=== PATIENT | female | born 1985 | race Hispanic/Latino ===

== ENCOUNTER 2017-04-23 11:43 | Emergency (ER) | payer SELFPAY ==
[2017-04-23 12:20] LABS: Bilirubin Negative (Negative); Blood, Urine Negative (Negative); Clarity Clear (Clear); Glucose, Urine (Dipstick) Negative (Negative); Leukocyte Negative (Negative); Nitrite Negative (Negative); Protein, Urine (Dipstick) Negative (Neg-Trace); Urobilinogen 0.2 mg/dL (0.2-1.0)
== END 2017-04-23 12:52 | disposition home or self-care (01) ==
LOC: SCSER 11:43
DX: E66.01 Morbid (severe) obesity due to excess calories (principal); M25.50 Pain in unspecified joint; I10 Essential (primary) hypertension; Z87.891 Personal history of nicotine dependence; Z79.899 Other long term (current) drug therapy
CPT/HCPCS: 81003; 99283

== ENCOUNTER 2017-12-30 18:18 | Emergency (ER) | payer SELFPAY ==
[~2017-12-30 18:18] MED LIST: ISOVUE-370 76%-LOCM 1 ML ONE
[2017-12-30 18:59] LABS: #Eosinphils 0.2 thou/uL (0.0-0.7); #Lymphocytes 1.4 thou/uL (1.20-3.40); #Monocytes 0.7 thou/uL (0.11-0.59); #Neutrophils 8.2 thou/uL (1.40-6.50); %Basophils 0.2 % (0.0-1.0); %Eosinophils 1.7 % (0.0-10.0); %Lymphocytes 13.7 % (21.0-51.0); %Monocytes 6.2 % (0.0-10.0); %Neutrophils 78.2 % (42.0-75.0); Hemoglobin 12.1 g/dL (12.0-16.0); Mean Corpuscular HGB CONC 30.3 g/dL (32.0-36.0); Mean Corpuscular Hemoglobin 24.7 pg (27.0-31.0); Mean Corpuscular Volume 81.7 fL (78.0-98.0); Mean Platelet Volume 8.3 fL (7.4-10.4); Platelet Count 291 thou/uL (130-400); RBC Distribution Width 19.6 % (11.5-14.5); Red Blood Cell (RBC) Count 4.89 mill/uL (4.20-5.40); White Blood Cell (WBC) Count 10.5 thou/uL (4.8-10.8)
[2017-12-30 19:15] LABS: BHCG - Serum Negative (NEGATIVE); Pregs Control Background? CLEAR/WHITE (CLR/WHITE); Pregs Control Bar Appear? YES (CONTROL BAR)
--- NOTE | 2017-12-30 19:21 | RAD ---
AP VIEW CHEST: 12/30/17 HISTORY: Dyspnea. 32-year-old female with history of cough for eight months. AP view chest is obtained. The lungs are well aerated. No evidence of acute intrathoracic abnormality seen. No evidence of effus ions, pneumonia or pneumothorax seen. IMPRESSION: Unremarkable AP view chest. POS: [facility]
[2017-12-30 19:22] LABS: ALT (SGPT) 17 U/L (8-55); AST (SGOT) 18 U/L (5-34); Albumin 3.6 g/dL (3.5-5.0); Alkaline Phosphatase 89 U/L (40-150); Anion Gap 12 mmol/L (10-20); BUN (Urea Nitrogen) 12 mg/dL (7.0-18.7); Bilirubin, Total 0.3 mg/dL (0.2-1.2); Calc. Creatinine Clearance 0 mL/min (70-130); Calcium 8.8 mg/dL (7.8-10.44); Carbon Dioxide 27 mmol/L (22-29); Chloride 99 mmol/L (98-107); Estimated GFR-MDRD Greater than 90; Globulin 3.6 g/dL (2.4-3.5); Glucose 98 mg/dL (70-105); Potassium 4.3 mmol/L (3.5-5.1); Protein, Total 7.2 g/dL (6.0-8.3); Sodium 134 mmol/L (136-145)
--- NOTE | 2017-12-30 21:13 | CT ---
CONTRAST ENHANCED CTA IMAGES OF CHEST 12/30/17 HISTORY: 32-year-old complaining of cough for eight months, shortness of breath. Contrast enhanced CTA of the chest is performed. 2D and 3D reconstructed images performed on an [employer] 3D workstation. No evidence of pleural or pericardial effusion seen. No evidence of significant mediastinal mass is seen. Mild superior mediastinal lymphadenopathy is pre sent. No evidence of hilar or axillary lymphadenopathy seen. No evidence of filling defect seen in the pulmonary arteries to suggest pulmonary emboli. IMPRESSION: No evidence of pulmonary emboli. POS: [facility]
== END 2017-12-30 21:18 | disposition home or self-care (01) ==
LOC: ERS 18:18
DX: R06.00 Dyspnea, unspecified (principal); J45.909 Unspecified asthma, uncomplicated; I10 Essential (primary) hypertension; E66.9 Obesity, unspecified; E11.9 Type 2 diabetes mellitus without complications; F17.210 Nicotine dependence, cigarettes, uncomplicated; F32.9 Major depressive disorder, single episode, unspecified; Z79.899 Other long term (current) drug therapy
CPT/HCPCS: 36415; 71045; 71275; 80053; 83880; 84703; 85025; 87040; 96360

== ENCOUNTER 2019-01-17 23:33 | Inpatient (IN) | payer SELFPAY ==
[2019-01-18] MEDS ORDERED: Ketorolac Tromethamine 30 MG/ML VIAL ONE (00:43)
[2019-01-18] MEDS ORDERED: Acetaminophen 1,000 MG in Premix Bag 1 BAG IVPB SCH (00:45)
[2019-01-18 00:51] LABS: Bacteria/HPF None Seen HPF (None Seen); Bilirubin Negative (Negative); Blood, Urine 1+ (Negative); Clarity Clear (Clear); Glucose, Urine (Dipstick) 50 mg/dL (Negative); Leukocyte Negative Leu/uL (Negative); Nitrite Negative (Negative); Pregnancy Test - Urine (BHCG) Negative (Negative); Pregu Control Bar Appear? YES (CONTROL BAR); Protein, Urine (Dipstick) 10 mg/dL (Neg-Trace); Specific Gravity 1.029 (1.002-1.036); Squamous Epithelial 0-3 HPF (0-3); Urobilinogen Normal mg/dL (Less than 2); WBC/HPF 0-3 HPF (0-3)
[2019-01-18 00:52] LABS: Pregu Control Background? CLEAR/WHITE (CLR/WHITE)
[2019-01-18 01:07] LABS: #Eosinphils 0.3 thou/uL (0.0-0.7); #Lymphocytes 1.9 thou/uL (1.20-3.40); #Monocytes 0.4 thou/uL (0.11-0.59); #Neutrophils 13.6 thou/uL (1.40-6.50); %Basophils 0.1 % (0.0-1.0); %Eosinophils 1.6 % (0.0-10.0); %Lymphocytes 11.6 % (21.0-51.0); %Monocytes 2.7 % (0.0-10.0); Hemoglobin 12.6 g/dL (12.0-16.0); Mean Corpuscular HGB CONC 31.6 g/dL (32.0-36.0); Mean Corpuscular Hemoglobin 26.1 pg (27.0-31.0); Mean Corpuscular Volume 82.7 fL (78.0-98.0); Mean Platelet Volume 7.6 fL (7.4-10.4); Platelet Count 290 thou/uL (130-400); RBC Distribution Width 16.3 % (11.5-14.5); Red Blood Cell (RBC) Count 4.83 mill/uL (4.20-5.40); White Blood Cell (WBC) Count 16.2 thou/uL (4.8-10.8)
[2019-01-18 01:37] LABS: ALT (SGPT) 12 U/L (8-55); AST (SGOT) 14 U/L (5-34); Albumin 3.7 g/dL (3.5-5.0); Alkaline Phosphatase 79 U/L (40-110); Anion Gap 13 mmol/L (10-20); BUN (Urea Nitrogen) 18 mg/dL (7.0-18.7); Bilirubin, Total Less than 0.2 mg/dL (0.2-1.2); Calc. Creatinine Clearance 0 mL/min (70-130); Calcium 9.2 mg/dL (7.8-10.44); Carbon Dioxide 27 mmol/L (22-29); Chloride 102 mmol/L (98-107); Estimated GFR-MDRD 79; Globulin 3.5 g/dL (2.4-3.5); Glucose 125 mg/dL (70-105); Lipase 21 U/L (8-78); Potassium 4.4 mmol/L (3.5-5.1); Protein, Total 7.2 g/dL (6.0-8.3); Sodium 138 mmol/L (136-145)
[2019-01-18 03:40] LABS: Lactic Acid 1.7 mmol/L (0.5-2.2)
[2019-01-18] MEDS ORDERED: Sodium Chloride 0.9% 1,000 ML IV SCH (04:30)
[2019-01-18 04:43] VITALS: BMI 64.8
[2019-01-18] MEDS ORDERED: Ketorolac Tromethamine 30 MG/ML VIAL IVP SCH (07:30)
--- NOTE | 2019-01-18 08:07 | CT ---
PRELIMINARY REPORT/[facility]/EMERGENCY AFTER HOURS PROCEDURE: Addendum created by Fritz Cameron MD on 01/18/2019 1:42 AM Central Time ([place] & [place]) Small fat-cont aining umbilical hernia. Probable umbilical cellulitis, related to generalized lower abdominal wall c ellulitis. Initial Report created on 01/18/2019 1:41 AM Central Time ([place] & [place]) PROCEDURE INFORMATION: Exam: CT Abdomen And Pelvis With Contrast Exam date and time: 01/18/2019 1:22 AM Clinical history: 33 years old, female; Patient HX: Er 23. F33 here for generalized abdominal pain an d 1 episode of vomiting. PT was dx with a hernia at another facility. No fevers. No dysuria. Patient had a normal bm today. TECHNIQUE: Imaging protocol: Computed tomography of the abdomen and pelvis with intravenous contrast. COMPARISON: No relevant prior studies available. FINDINGS: Liver: Normal. No mass. Gallbladder and bile ducts: Normal. No calcified stones. No ductal dilation. Pancreas: Normal. No ductal dilation. Spleen: Normal. No splenomegaly. Adrenals: Normal. No mass. Kidneys and ureters: Round hypodense lesion of the right kidney does not meet strict CT criteria for a simple cyst and is indeterminate, potentially a hyperdense cyst. It measures 1.5 cm and 33 Hounsfie ld units. Stomach and bowel: Mild gaseous distention of the nondependent portions of the bowel may contribute t o patient discomfort but is not pathologic. No bowel wall thickening or intestinal obstruction. Appendix: Normal appendix. Intraperitoneal space: Trace ascites. Vasculature: Unremarkable. No abdominal aortic aneurysm. Lymph nodes: Bilateral inguinal lymphadenopathy measuring up to 1.5 cm in short axis. Bladder: Unremarkable as visualized. Reproductive: Endometrial stripe is diffusely thickened. Consider ultrasound. Bones/joints: Unremarkable. No acute fracture. Soft tissues: Low anterior abdominal wall cellulitis. IMPRESSION: 1. Low anterior abdominal wall cellulitis. 2. Bilateral inguinal lymphadenopathy measuring up to 1.5 cm in short axis. 3. Endometrial stripe is diffusely thickened. Consider ultrasound. 4. Trace ascites. Thank you for allowing us to participate in the care of your patient. Dictated and Authenticated by: Fritz Cameron MD 01/18/2019 1:41 AM Central Time ([place] & [place]) FINAL REPORT CT ABDOMEN AND PELVIS WITH IV CONTRAST: I agree with the preliminary report given by Dr. Fritz Cameron of [facility]. POS: [facility]
[2019-01-18] MEDS ORDERED: Ondansetron PF 4 MG/2 ML Vial IVP PRN (10:51)
[2019-01-18] MEDS ORDERED: Ondansetron ODT 4 MG TAB PO PRN (10:51)
[2019-01-18] MEDS ORDERED: Acetaminophen 650 MG Suppository PR PRN (10:51)
[2019-01-18] MEDS ORDERED: Senokot S 8.6-50 MG TAB PO PRN (10:51)
[2019-01-18] MEDS ORDERED: Dextrose 50% Abboject 50 ML SYRINGE SLOW IVP PRN (10:57)
[2019-01-18] MEDS ORDERED: HumaLOG 300 UNITS/3 ML VIAL SC PRN ×2 (10:57)
[2019-01-18] MEDS ORDERED: Dextrose 5% in Water 1,000 ML IV PRN (10:57)
--- NOTE | 2019-01-18 11:01 | PDOC.HHP ---
Hospitalist HPI - History of Present Illness Abdominal pain History of Present Illness: Ms. Greenfield is a pleasant 33 year old woman presenting with abdominal cramping. Reports feeling a "knot" on her abdomen which she associated with a hernia. She states the cramping became worse prompting her to come in.This morning when I walked in she stated she felt much better and thinks the discomfort is associated with her menses due to vaginal bleeding she had yesterday. She states she often has heavy bleeding on the first day and then has occasional spotting after that. This has been normal for her for many years. She was seen with similar symptoms 1 week ago at the [facility] in the ED at which time she had been experiencing N/V. It was at that time that she was diagnosed with an abdominal hernia. She denies any complaints at present. I did review with her results from imaging done in the ED. ED Course: In the ED she received IV fluids, Ofirmev and Toradol. She had a CT Abdomen/Pelvis done showing low anterior abdominal wall cellulitis , bilateral inguinal lymphadenopathy measuring up to 1.5cm. The endometrial stripe appeared diffusely thickened. She was also noted to have trace ascites. She was started on IV abx with Vancomycin. Hospitalist ROS - Review of Systems Constitutional: reports: malaise. denies: fever, chills, sweats, weakness, other Eyes: denies: pain, vision change, conjunctivae inflammation, eyelid inflammation, redness, other ENT: denies: ear pain, ear discharge, nose pain, nose discharge, nose congestion , mouth pain, mouth swelling, throat pain, throat swelling, other Respiratory: reports: cough (chronic, unchanged and unproductive), shortness of breath (at baseline, uses inhalers and nebs at home.). denies: dry, hemoptysis , SOB with excertion, pleuritic pain, sputum, wheezing, other Cardiovascular: denies: chest pain, palpitations, orthopnea, paroxysmal noc. dyspnea, edema, light headedness, other Gastrointestinal: reports: abdominal pain (Has improved, described as low abdominal cramping as well as supraumbilical discomfort that mainly is brought on with palpation.). denies: nausea, vomiting, diarrhea, constipation, melena, hematochezia, other Genitourinary: denies: dysuria, frequency, incontinence, hematuria, retention, other Musculoskeletal: denies: neck pain, shoulder pain, arm pain, back pain, hand pain, leg pain, foot pain, other Skin: denies: rash, lesions, rambo, bruising, other Neurological: denies: weakness, numbness, incoordination, change in speech, confusion, seizures, other - Medication Medications: Active Medications Generic Name Dose Route Start Last Admin Trade Name Freq PRN Reason Stop Dose Admin Sodium Chloride 1,000 mls @ 125 mls/hr 01/18/19 04:30 01/18/19 05:07 Normal Saline 0.9% IV 01/18/19 15:00 1,000 mls .Q8H HUBERT Administration Hospitalist History - Past Medical History Source: patient Cardiac: reports: HTN, Other (Morbid obesity) Pulmonary: reports: asthma, COPD [employer]: reports: no pertinent history Gastrointestinal: reports: GERD Hepatobiliary: reports: no pertinent history Psych: reports: Depression Rheumatologic: reports: no pertinent history Infectious Disease: reports: no pertinent history ENT: reports: no pertinent history Renal/: reports: no pertinent history Endocrine: reports: Diabetes - Past Surgical History Past Surgical History: reports: Other (Orthopedic surgery (right leg x 3)) - Social History Smoking Status: Current every day smoker (has cut down to 1/2 a pack per day) Alcohol: reports: None Living Situation: With Family Activity level: independent ambulation - Exam General Appearance: NAD General - other findings: Morbidly obese Eye: PERRL, anicteric sclera ENT: normocephalic atraumatic, no oropharyngeal lesions, moist mucosa Neck: supple, symmetric, no JVD, no thyromegaly, no lymphadenopathy Heart: RRR, no murmur, no gallops, no rubs, normal peripheral pulses Respiratory: CTAB, no wheezes, no rales, no ronchi, normal chest expansion Gastrointestinal: soft, non-distended, normal bowel sounds, no guarding, tender to palpation (Discomfort in supraumbilical region with slight firmness, no guarding no warmth) Extremities: no edema Skin: normal turgor, no lesions, no rashes Neurological: cranial nerve grossly intact Musculoskeletal: normal tone, normal strength, no muscle wasting Psychiatric: normal affect, normal behavior, A&O x 3 Hospitalist Results - Labs Result Diagrams: 01/18/19 00:57 01/18/19 00:57 Lab results: WBC 16.2 thou/uL (4.8-10.8) H 01/18/19 00:57 Hgb 12.6 g/dL (12.0-16.0) 01/18/19 00:57 Hct 39.9 % (36.0-47.0) 01/18/19 00:57 MCV 82.7 fL (78.0-98.0) 01/18/19 00:57 Plt Count 290 thou/uL (130-400) 01/18/19 00:57 Neutrophils % 84.0 % (42.0-75.0) H 01/18/19 00:57 Sodium 138 mmol/L (136-145) 01/18/19 00:57 Potassium 4.4 mmol/L (3.5-5.1) 01/18/19 00:57 Chloride 102 mmol/L (98-107) 01/18/19 00:57 Carbon Dioxide 27 mmol/L (22-29) 01/18/19 00:57 BUN 18 mg/dL (7.0-18.7) 01/18/19 00:57 Creatinine 0.83 mg/dL (0.6-1.1) 01/18/19 00:57 Glucose 125 mg/dL (70-105) H 01/18/19 00:57 Lactic Acid 1.7 mmol/L (0.5-2.2) 01/18/19 03:16 Calcium 9.2 mg/dL (7.8-10.44) 01/18/19 00:57 Total Bilirubin Less than 0.2 mg/dL (0.2-1.2) L 01/18/19 00:57 AST 14 U/L (5-34) 01/18/19 00:57 ALT 12 U/L (8-55) 01/18/19 00:57 Alkaline Phosphatase 79 U/L (40-110) 01/18/19 00:57 Serum Total Protein 7.2 g/dL (6.0-8.3) 01/18/19 00:57 Albumin 3.7 g/dL (3.5-5.0) 01/18/19 00:57 Lipase 21 U/L (8-78) 01/18/19 00:57 Urine Ketones Negative mg/dL (Negative) 01/18/19 00:34 Urine Blood 1+ (Negative) A 01/18/19 00:34 Urine Nitrite Negative (Negative) 01/18/19 00:34 Ur Leukocyte Esterase Negative Agapito/uL (Negative) 01/18/19 00:34 Urine RBC 11-20 HPF (0-3) A 01/18/19 00:34 Urine WBC 0-3 HPF (0-3) 01/18/19 00:34 Ur Squamous Epith Cells 0-3 HPF (0-3) 01/18/19 00:34 Urine Bacteria None Seen HPF (None Seen) 01/18/19 00:34 - Radiology Interpretation CT scan - abdomen Status: report reviewed by in Hospitalist H&P A/P - Problem (1) Abdominal wall cellulitis Code(s): L03.311 - CELLULITIS OF ABDOMINAL WALL Status: Acute (2) Abdominal pain Code(s): R10.9 - UNSPECIFIED ABDOMINAL PAIN Status: Acute (3) Hypertension Code(s): I10 - ESSENTIAL (PRIMARY) HYPERTENSION Status: Chronic (4) Diabetes mellitus Code(s): E11.9 - TYPE 2 DIABETES MELLITUS WITHOUT COMPLICATIONS Status: Chronic (5) Morbid obesity Code(s): E66.01 - MORBID (SEVERE) OBESITY DUE TO EXCESS CALORIES Status: Chronic - Plan Plan: Continue IV Abx. Repeat labs, including lactic acid. Resume home medications once verified and entered. No home meds list have been entered however appears to be on multiple medications for HTN and DM. Monitor BP and glucose. ISS initiated. Duo nebs prn. Resume home inhalers once entered/verified. IVF Fluids at 125 cc/hr, will cut down to 65/hr, given history of LE edema ( denies history of CHF). Will add BNP to labs. GI Prophylaxis with Famotidine. DVT Prophlaxis with mechanical SCDs. Walking program consulted. FULL CODE STATUS. Her surrogate decision maker is her mother Marilyn Greenfield.
[2019-01-18] MEDS: Sodium Chloride 0.9% 1,000 ML IV SCH ×2 (12:25→20:19)
[2019-01-18] MEDS ORDERED: ISOVUE-370 76%-LOCM 1 ML ONE (13:39)
[2019-01-18] MEDS: buPROPion HCl 100 MG TAB PO SCH ×2 (15:29→20:22)
[2019-01-18] MEDS: Acetaminophen 325 MG TAB PO PRN ×2 (16:18→20:22)
[2019-01-18] MEDS: Famotidine/PF 20 mg/2ml Vial SLOW IVP SCH (20:23)
[2019-01-18] MEDS ORDERED: FLU VACC QS2019-20(6MOS UP)/PF 60 MCG/0.5 ML SYRINGE IM ONE (21:00)
[2019-01-18] MEDS: Ketorolac Tromethamine 30 MG/ML VIAL IVP PRN (21:57)
[2019-01-19 05:43] LABS: #Eosinphils 0.4 thou/uL (0.0-0.7); #Lymphocytes 1.2 thou/uL (1.20-3.40); #Monocytes 0.4 thou/uL (0.11-0.59); #Neutrophils 8.4 thou/uL (1.40-6.50); %Eosinophils 3.4 % (0.0-10.0); %Lymphocytes 11.7 % (21.0-51.0); %Monocytes 4.1 % (0.0-10.0); %Neutrophils 80.8 % (42.0-75.0); Hemoglobin 11.1 g/dL (12.0-16.0); Mean Corpuscular HGB CONC 30.6 g/dL (32.0-36.0); Mean Corpuscular Hemoglobin 25.5 pg (27.0-31.0); Mean Corpuscular Volume 83.3 fL (78.0-98.0); Mean Platelet Volume 7.8 fL (7.4-10.4); Platelet Count 225 thou/uL (130-400); RBC Distribution Width 16.2 % (11.5-14.5); Red Blood Cell (RBC) Count 4.35 mill/uL (4.20-5.40); White Blood Cell (WBC) Count 10.4 thou/uL (4.8-10.8)
[2019-01-19 06:04] LABS: Vancomycin, Trough 25.5 ug/mL
[2019-01-19 06:05] LABS: Anion Gap 10 mmol/L (10-20); BUN (Urea Nitrogen) 10 mg/dL (7.0-18.7); Calc. Creatinine Clearance 291 mL/min (70-130); Calcium 8.3 mg/dL (7.8-10.44); Carbon Dioxide 28 mmol/L (22-29); Chloride 102 mmol/L (98-107); Estimated GFR-MDRD Greater than 90; Glucose 138 mg/dL (70-105); Potassium 3.9 mmol/L (3.5-5.1); Sodium 136 mmol/L (136-145)
[2019-01-19] MEDS: Ketorolac Tromethamine 30 MG/ML VIAL IVP PRN (06:38)
[2019-01-19 07:19] VITALS: TEMP 97.9
[2019-01-19] MEDS ORDERED: Lisinopril 10 MG TAB PO SCH (09:00)
[2019-01-19] MEDS ORDERED: Citalopram 20 MG TAB PO SCH (09:00)
[2019-01-19] MEDS: buPROPion HCl 100 MG TAB PO SCH (09:13)
[2019-01-19] MEDS: Famotidine/PF 20 mg/2ml Vial SLOW IVP SCH (09:13)
[2019-01-19 12:36] VITALS: BP 147/53
--- NOTE | 2019-01-19 21:35 | DIS ---
DATE OF ADMISSION: 01/18/2019 DATE OF DISCHARGE: 01/19/2019 DISCHARGE DIAGNOSES: 1. Abdominal wall cellulitis. 2. Abdominal pain. 3. Hypertension. 4. Diabetes mellitus, type 2. 5. Morbid obesity. HOSPITAL COURSE: The patient is a 33-year-old female, who was admitted to the hospital with abdominal cramping. Apparently, she was seen at the [facility] in the emergency room approximately a week ago with similar presentation. Abdominal cramping was presenting with nausea and vomiting. Apparently, she ran out of her omeprazole several weeks ago and in the emergency room, she received IV fluids and Toradol. She had a CT of the abdomen and pelvis done which showed low anterior abdominal wall cellulitis, bilateral inguinal lymphadenopathy measuring up to 1.5 cm, and endometrial stripe appeared diffusely thickened. The patient was evaluated in the emergency room with lab work which showed white count of 16.2, hemoglobin 12.6, hematocrit 39.9, platelet count was 290. Sodium 138, potassium 4.4, chloride 102, CO2 of 27, BUN 18, creatinine 0.83, and glucose 125. The rest of chemistry was within normal limits. Lipase was 21. Urinalysis showed 1+ blood in urine, 11-20 rbc's. Urine nitrite negative and urine leukocyte esterase negative. The patient was admitted to the hospital, placed on vancomycin. Her lactic acid was repeated and was normal. Her abdominal pain was completely gone the next day, which is today. She is able to eat her meals. She had two breakfast and lunch without any problems. She would like to go home. Her vitals; blood pressure is 153/94, temperature is 97.9, pulse is 71, respirations 16, and O2 saturation is 99% on room air. She is morbidly obese. Her lungs are clear. Heart; S1, S2 normal. Abdomen is very obese. The lower parts of the abdomen in the fold showed some mild erythema and mild rash. The patient was asked to have this area cleaned thoroughly couple of times a day with water and soap and apply triple antibiotic ointment. She is going to take her antibiotic, which is Bactrim Double Strength one tablet twice a day for the next 14 days. Also, she will continue on her trazodone 100 mg at bedtime, bupropion 100 mg 3 times a day, Celexa 40 mg daily, glipizide 10 mg every morning, metformin 1000 mg twice a day, lisinopril 10 mg daily, omeprazole 40 mg daily, so she will have prescription for both Bactrim and omeprazole. She will follow up with her primary care physician in 1 week. She goes to [facility] and she will use p.r.n. Tylenol as needed for the pain. She is discharged home in good condition. Her two blood cultures came back negative and white count is down to normal range this morning. The time spent on this discharge is less than 30 minutes. Job ID: [id number]
--- NOTE | 2019-01-20 04:47 | PQF ---
[employer] Magi Reddy RAMU You MD [id number] CLINICAL DOCUMENTATION CLARIFICATION FORM: POST DISCHARGE Addendum to original discharge summary date: ____ Late entry note date: __ DATE: 01/20/2019 ATTN: Ramu Gutierres Please exercise your independent, professional judgment in responding to the clarification form. Clinical indicators are provided on the bottom of this form for your review Kindly clarify regarding ruled in/ruled out sepsis Please check appropriate box(s) to clarify if the following diagnosis has been ruled in or ruled out: Sepsis [ ] Ruled in diagnosis [ ] Continue to treat [ ] Resolved [ ] Ruled out diagnosis [ x ] Cannot rule out diagnosis [ ] Other diagnosis [ ] Unable to determine For continuity of documentation, please document condition throughout progress notes and discharge summary. Thank You. CLINICAL INDICATORS - SIGNS / SYMPTOMS / LABS Sepsis 2/2 cellulitis - ED report Blood pressure 145/92, pulse 95 and respiratory rate 22 - ED report Repeat labs, including lactic acid - H and P WBC is 16.2 on 01/18 - Laboratory RISK FACTORS Abdominal wall cellulitis - discharge summary Hypertension and diabetes mellitus - discharge summary TREATMENTS IV Vancomycin started on 01/18 - Medications IV fluids started on 01/18 - Medications (This form is maintained as a part of the permanent medical record) 2014 [employer] All Rights Reserved [email or web address] [phone] [email or web address]
== END 2019-01-19 13:39 | disposition home or self-care (01) | DRG 872 ==
LOC: ERS 23:33 → T4-B 01-18 04:10
PROVIDERS: ADMIT Hospitalist; ATTEND Hospitalist
DX: A41.9 Sepsis, unspecified organism (principal); L03.311 Cellulitis of abdominal wall; Z68.44 Body mass index [BMI] 60.0-69.9, adult; R59.0 Localized enlarged lymph nodes; F17.210 Nicotine dependence, cigarettes, uncomplicated; I10 Essential (primary) hypertension; E11.9 Type 2 diabetes mellitus without complications; E66.01 Morbid (severe) obesity due to excess calories; J44.9 Chronic obstructive pulmonary disease, unspecified; F32.9 Major depressive disorder, single episode, unspecified
CPT/HCPCS: 36415; 36416; 51701; 74177; 80048; 80053; 80202; 81003; 81015; 81025; 83605; 83690; 83880; 85025; 87040; 96365; 96375; A4353; J0131; J1885; J3370; J7050; Q9966; S0028

== ENCOUNTER 2020-08-17 17:16 | Outpatient (CLI) | payer SELFPAY ==
[2020-08-17 18:30] LABS: BHCG - Serum Negative (NEGATIVE); Pregs Control Background? CLEAR/WHITE (CLR/WHITE); Pregs Control Bar Appear? YES (CONTROL BAR)
[2020-08-17 18:34] LABS: Anion Gap 17 mmol/L (10-20); BUN (Urea Nitrogen) 11 mg/dL (7.0-18.7); Calc. Creatinine Clearance 0 mL/min (70-130); Calcium 8.6 mg/dL (7.8-10.44); Carbon Dioxide 25 mmol/L (22-29); Chloride 99 mmol/L (98-107); Glucose 167 mg/dL (70-105); Potassium 3.9 mmol/L (3.5-5.1); Sodium 137 mmol/L (136-145)
[2020-08-18 01:54] LABS: SARS-CoV-2 PCR by NAA Not Detected (NotDetected)
== END 2020-08-17 17:17 | disposition home or self-care (01) ==
LOC: LABBT 17:16
PROVIDERS: ATTEND Surgery Surgery of the Hand
DX: Z01.812 Encounter for preprocedural laboratory examination (principal); S62.606A Fracture of unspecified phalanx of right little finger, initial encounter for closed fracture; S66.114A Strain of flexor muscle, fascia and tendon of right ring finger at wrist and hand level, initial encounter; Z20.822 Contact with and (suspected) exposure to COVID-19
CPT/HCPCS: 80048; 84703; 87635; U0003; U0005

== ENCOUNTER 2020-08-24 16:57 | Outpatient (CLI) | payer SELFPAY ==
[2020-08-24 17:54] LABS: Anion Gap 15 mmol/L (10-20); BUN (Urea Nitrogen) 13 mg/dL (7.0-18.7); Calc. Creatinine Clearance 0 mL/min (70-130); Calcium 9.2 mg/dL (7.8-10.44); Carbon Dioxide 27 mmol/L (22-29); Chloride 97 mmol/L (98-107); Glucose 239 mg/dL (70-105); Potassium 4.4 mmol/L (3.5-5.1); Sodium 135 mmol/L (136-145)
[2020-08-24 18:07] LABS: BHCG - Serum Negative (NEGATIVE); Pregs Control Background? CLEAR/WHITE (CLR/WHITE); Pregs Control Bar Appear? YES (CONTROL BAR)
[2020-08-25 01:47] LABS: SARS-CoV-2 PCR by NAA Not Detected (NotDetected)
== END 2020-08-24 16:58 | disposition home or self-care (01) ==
LOC: LABBT 16:57
PROVIDERS: ATTEND Surgery Surgery of the Hand
DX: Z01.812 Encounter for preprocedural laboratory examination (principal); S62.606A Fracture of unspecified phalanx of right little finger, initial encounter for closed fracture; Z20.822 Contact with and (suspected) exposure to COVID-19
CPT/HCPCS: 80048; 84703; 87635; U0003; U0005

== ENCOUNTER 2020-08-28 10:09 | Day surgery (SDC) | payer SELFPAY ==
[2020-08-18 12:06] VITALS: BMI 54.0
[2020-08-28] MEDS ORDERED: Lidocaine 1% (PF) 30 ML VIAL ONE (11:48)
[2020-08-28] MEDS ORDERED: Bupivacaine 0.25% HCL 30 ML VIAL ONE (11:48)
[2020-08-28] MEDS ORDERED: Fentanyl 100 MCG/2 ML VIAL ONE (12:01)
[2020-08-28] MEDS ORDERED: Midazolam HCl 2 mg/2 ml Vial ONE (12:32)
[2020-08-28] MEDS ORDERED: Ondansetron PF 4 MG/2 ML Vial ONE (12:51)
[2020-08-28] MEDS ORDERED: Rocuronium Bromide 10 MG/ML (10ML VIAL) ONE (12:51)
[2020-08-28] MEDS ORDERED: Lidocaine 1% PF 5 ML VIAL ONE (12:51)
[2020-08-28] MEDS ORDERED: Ketorolac Tromethamine 30 MG/ML VIAL ONE (12:51)
[2020-08-28] MEDS ORDERED: Metoclopramide HCl 10 MG/2 ML VIAL ONE (12:51)
[2020-08-28] MEDS ORDERED: diphenhydrAMINE 50 MG/ML VIAL ONE (12:51)
[2020-08-28] MEDS ORDERED: PROPOFOL 200 MG/20 ML VIAL ONE (12:51)
[2020-08-28] MEDS ORDERED: SUGAMMADEX SODIUM 200 MG/2 ML VIAL ONE (14:03)
== END 2020-08-28 16:30 | disposition home or self-care (01) ==
LOC: SDC 10:09
PROVIDERS: ATTEND Surgery Surgery of the Hand
PROC: 0PST04Z Reposition Right Finger Phalanx with Internal Fixation Device, Open Approach (ICD-10-PCS; principal; 2020-08-28)
DX: S62.636A Displaced fracture of distal phalanx of right little finger, initial encounter for closed fracture (principal); E11.9 Type 2 diabetes mellitus without complications; G47.30 Sleep apnea, unspecified; M19.90 Unspecified osteoarthritis, unspecified site; F17.210 Nicotine dependence, cigarettes, uncomplicated; Z79.84 Long term (current) use of oral hypoglycemic drugs; Z79.899 Other long term (current) drug therapy; W23.1XXA Caught, crushed, jammed, or pinched between stationary objects, initial encounter
CPT/HCPCS: 76000; C1713; J0690; J1200; J1885; J2001; J2250; J2405; J2704; J2765; J3010; J7620; S0020